=== PATIENT | female | born 1990 | race Caucasian/White ===

== ENCOUNTER 2023-04-27 10:17 | Inpatient (IN) ==
[2023-04-27] MEDS ORDERED: OXYTOCIN 30 UNITS/500 ML BAG IV PRN (10:48)
[2023-04-27] MEDS ORDERED: LIDOCAINE 1% LOCAL 20 ML VIAL INFIL PRN (10:48)
[2023-04-27] MEDS: LACTATED RINGER'S 1,000 ML IV PRN (11:10)
[2023-04-27] MEDS ORDERED: DINOPROSTONE 10 MG INSERT PV ONE (11:41)
--- NOTE | 2023-04-27 11:41 | History & Physical Report ---
Date of Service April 27, 2023 Assessment & Plan Admission and Anticipated Discharge Date Admission Date: April 27, 2023 History of Present Illness Chief Complaint: induction of labor Primary Care Provider: Sterling Pascal MD 32 F P0000 at 38 weeks presents for IOL for IUGR Allergies Allergy/AdvReac Type Severity Reaction Status Date / Time No Known Allergies Allergy Unverified 04/17/23 19:39 Home Medications Medication Instructions Recorded Confirmed Type cyanocobalamin (B12)-cobamamide 1 rick sublingual 04/17/23 History 5,000 mcg-100 mcg sublingual lozenge (B12) docusate sodium 50 mg capsule 50 mg PO DAILY 04/17/23 04/17/23 History iron,carbonyl 65 mg-vitamin C 125 tab PO 04/17/23 History mg tablet,delayed release (Vitron-C) vit no.95-ferrous 1 tab PO DAILY 04/17/23 04/17/23 History fumarate 28 mg-folic acid 800 mcg tablet () Patient History Medical History Hx of right bundle branch block Thrombocytopenia affecting Surgical History H/O LEEP [place] teeth removed Social History Smoking Status: Never smoker Second Hand Exposure: No; Hx Alcohol Use: No Hx Substance Use: No Preferred Language: Georgian Communication Ability: Effective 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 Beliefs That Will Affect Care: None marital status: Current Living Situation: Spouse Current Living Situation Comment: with Feels Safe at Home: Yes Assistive Devices: None OB History primigravida IUGR 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 Review of Systems All systems reviewed & are unremarkable except as noted in HPI & below Physical Exam Constitutional: WD/WN, vitals as above Eyes: PERRL, conjunctivae normal, anicteric sclerae Respiratory: normal respiratory effort, lungs clear to auscultation Cardiovascular: RRR, no murmur, no edema Rate/Rhythm: regular rate and regular rhythm Gastrointestinal (Abdomen): Inspection/Auscultation: abdomen normal to inspection Musculoskeletal: Extremities: extremities normal to inspection Skin: no rashes, warm and dry Neurologic: patellar DTR's 2+ bilat, sensation intact Psychiatric: A+Ox3, euthymic affect Genitourinary: no vaginal lesions, no adnexal mass Manual OB Exam: + cervical dilation fingertip, + cervical effacement 50% and + station high OB Exam Monitor Tracing: + external FHT monitor used, + external uterine monitor used, + category I and + normal FHT variability Cervix closed/thick/firm/posterior Will use Cervidil for ripening Results & Data Vital Signs (Past 12 Hours) Vital Signs Pulse BP 04/27/23 11:30 84 149/103 H 04/27/23 11:21 75 145/97 H 04/27/23 11:12 77 156/89 H 04/27/23 11:00 78 141/93 H 04/27/23 10:51 81 146/99 H 04/27/23 10:42 79 150/95 H Monitoring External Monitor Cat 1
[2023-04-27 11:54] LABS: Hematocrit (blood only) 36.5 % (37.0-47.0); Hemoglobin 12.9 g/dl (12.0-16.0); Mean Corpuscular Hemoglobin 31.9 pg (25.0-34.0); Mean Corpuscular Hgb Conc 35.3 g/dL (32.0-36.0); Mean Corpuscular Volume 90.3 fL (80.0-100.0); Mean Platelet Volume 12.9 fL (9.4-12.4); Platelet Count 87 K/uL (130-400); RDW Coefficient of Variation 12.7 % (11.5-14.5); RDW Standard Deviation 41.5 fL (36.4-46.3); Red Blood Count 4.04 M/uL (4.20-5.40); White Blood Count 7.88 K/ul (4.8-10.8)
[2023-04-27 12:05] LABS: Alanine Aminotransferase 18 U/L (7-52); Albumin Globulin Ratio 1.3 (0.9-2); Albumin Level 3.6 gm/dl (3.4-5.0); Alkaline Phosphatase 115 U/L (34-104); Anion Gap 8 (3-11); Aspartate Aminotransferase 17 U/L (13-39); BUN Creatinine Ratio 16.4 (10-20); Bilirubin Direct 0.1 mg/dl (0-0.2); Bilirubin,Total 0.3 mg/dl (0.2-1.0); Blood Urea Nitrogen 12 mg/dl (6-23); Calcium 9.5 mg/dl (8.6-10.3); Carbon Dioxide 21 mmol/L (21-32); Chloride 105 mmol/L (98-107); Est GFR (African American) 127.2 ml/min; Est GFR (Non-African American) 109.7 ml/min; Globulin 2.7 gm/dl (2.5-4.0); Glucose 71 mg/dl (70-99(Fasting)); Potassium 3.8 mmol/L (3.5-5.1); Sodium 134 mmol/L (136-145); Total Protein 6.3 gm/dl (6.0-8.3); Uric Acid 6.8 mg/dl (2.6-7.2)
--- NOTE | 2023-04-27 12:18 | Labor Progress Brief Note ---
Date of Service April 27, 2023 Assessment & Plan Admission and Anticipated Discharge Date Admission Date: April 27, 2023 Physical Exam Genitourinary: OB Exam Monitor Tracing: + external FHT monitor used, + external uterine monitor used, + category I and + normal FHT variability Cervidil 10 mg placed vaginally Results & Data Vital Signs (Past 12 Hours) Vital Signs Pulse BP 04/27/23 12:10 72 143/88 H 04/27/23 12:00 74 141/87 H 04/27/23 11:50 75 136/86 04/27/23 11:41 71 142/99 H 04/27/23 11:30 84 149/103 H 04/27/23 11:21 75 145/97 H 04/27/23 11:12 77 156/89 H 04/27/23 11:00 78 141/93 H 04/27/23 10:51 81 146/99 H 04/27/23 10:42 79 150/95 H
[2023-04-27] MEDS ORDERED: SODIUM CHLORIDE 0.9% 250 ML IV PRN (13:10)
[2023-04-27 13:21] LABS: Creatinine Urine Random 49.8 mg/dl; Protein Creatinine Ratio Urine 0.1 (0-0.2); Total Protein Urine Random 6.4 mg/dl (0-11.9)
[2023-04-28] MEDS ORDERED: BUTORPHANOL TARTRATE 1 MG/ML VIAL IV PRN (00:19)
--- NOTE | 2023-04-28 00:19 | Labor Progress Brief Note ---
Date of Service April 28, 2023 Assessment & Plan Admission and Anticipated Discharge Date Admission Date: April 27, 2023 Physical Exam Genitourinary: Manual OB Exam: + cervical dilation 1 cm, + cervical effacement 60% and + station -2 OB Exam Monitor Tracing: + external FHT monitor used, + external uterine monitor used, + category I and + normal FHT variability Cervidil pulled out. Will start Cytotec 50 mcg every 4 hrs. Results & Data Vital Signs (Past 12 Hours) Vital Signs Temp Pulse Resp BP 04/27/23 19:12 36.6 C 18 04/28/23 00:07 82 122/83 04/27/23 23:50 68 136/85 04/27/23 23:37 75 140/90 04/27/23 21:16 68 137/83 04/27/23 18:48 73 133/83 04/27/23 17:14 77 133/86 04/27/23 15:50 72 135/90 04/27/23 15:19 72 136/89 04/27/23 13:51 80 151/91 H 04/27/23 13:21 73 127/82 04/27/23 12:51 78 120/77
[2023-04-28] MEDS: miSOPROStoL 50 MCG TAB PO SCH ×2 (04:51→04:52)
[2023-04-28] MEDS: LACTATED RINGER'S 1,000 ML IV PRN ×2 (08:08→10:28)
[2023-04-28] MEDS ORDERED: OXYTOCIN 30 UNITS/500 ML BAG IV PRN ×2 (08:18→11:40)
--- NOTE | 2023-04-28 08:18 | Obstetrical Progress Note ---
Date of Service April 28, 2023 Assessment & Plan (1) Gestational hypertension: Plan: Plan to start oxytocin for augmentation when contractions spaced out and becomes category 1 tracing Epidural if patient requests pending platelet level CBC, chemistry every 12 hours No signs or symptoms, or severe range blood pressures to indicate preeclampsia with severe features. Protein creatinine ratio on admission 0.1 Anticipate spontaneous vaginal delivery (2) IUGR (intrauterine growth restriction) affecting care of mother: Plan: 8th percentile on recent growth scan (3) GDM (gestational diabetes mellitus), class A1: Plan: Continue to monitor at this time (4) Thrombocytopenia affecting : Plan: Last platelet level 87, morning platelet level pending Admission and Anticipated Discharge Date Admission Date: April 27, 2023 Subjective Patient getting more uncomfortable with contractions, feeling more pressure No PIH symptoms at this time Review of Systems Review of Systems: All systems reviewed & are unremarkable except as noted in HPI & below Physical Exam Constitutional: WD/WN, vitals as above Genitourinary: heart tracing: Baseline 1 301 35, moderate variability, positive accelerations, noted 1 late deceleration Tocometer: Contractions every 2 to 4 minutes Cervix: 3-4/80/-1, AROM performed with blood-tinged fluid, no cord felt, no complications Results & Data Vital Signs (Past 12 Hours) Vital Signs Temp Pulse Resp BP 04/28/23 04:49 18 04/28/23 04:49 37.1 C 18 04/28/23 04:53 73 141/94 H 04/28/23 02:53 67 145/78 H 04/28/23 00:09 18 04/28/23 00:09 37.0 C 18 04/28/23 00:07 82 122/83 04/27/23 23:50 68 136/85 04/27/23 23:37 75 140/90 04/27/23 21:16 68 137/83 Laboratory Results Laboratory Results WBC 7.88 K/ul (4.8-10.8) 04/27/23 11:25 RBC 4.04 M/uL (4.20-5.40) L 04/27/23 11:25 Hgb 12.9 g/dl (12.0-16.0) 04/27/23 11:25 Hct 36.5 % (37.0-47.0) L 04/27/23 11:25 MCV 90.3 fL (80.0-100.0) 04/27/23 11:25 MCH 31.9 pg (25.0-34.0) 04/27/23 11:25 MCHC 35.3 g/dL (32.0-36.0) 04/27/23 11:25 RDW Std Deviation 41.5 fL (36.4-46.3) 04/27/23 11:25 RDW Coeff of Celeste 12.7 % (11.5-14.5) 04/27/23 11:25 Plt Count 87 K/uL (130-400) L 04/27/23 11:25 MPV 12.9 fL (9.4-12.4) H 04/27/23 11:25 Sodium 134 mmol/L (136-145) L 04/27/23 11:25 Potassium 3.8 mmol/L (3.5-5.1) 04/27/23 11:25 Chloride 105 mmol/L (98-107) 04/27/23 11:25 Carbon Dioxide 21 mmol/L (21-32) 04/27/23 11:25 Anion Gap 8 (3-11) 04/27/23 11:25 BUN 12 mg/dl (6-23) 04/27/23 11:25 Creatinine 0.73 mg/dl (0.6-1.2) 04/27/23 11:25 Est Cr Clr Drug Dosing Not Reportable 04/27/23 11:25 Est GFR ( Amer) 127.2 ml/min 04/27/23 11:25 Est GFR (Non-Af Amer) 109.7 ml/min 04/27/23 11:25 BUN/Creatinine Ratio 16.4 (10-20) 04/27/23 11:25 Glucose 71 mg/dl (70-99(Fasting)) 04/27/23 11:25 POC Glucose 73 mg/dl (70-99) 04/27/23 11:29 Uric Acid 6.8 mg/dl (2.6-7.2) 04/27/23 11:25 Calcium 9.5 mg/dl (8.6-10.3) 04/27/23 11:25 Total Bilirubin 0.3 mg/dl (0.2-1.0) 04/27/23 11:25 Direct Bilirubin 0.1 mg/dl (0-0.2) 04/27/23 11:25 AST 17 U/L (13-39) 04/27/23 11:25 ALT 18 U/L (7-52) 04/27/23 11:25 Alkaline Phosphatase 115 U/L (34-104) H 04/27/23 11:25 Lactate Dehydrogenase 145 U/L (86-244) 04/27/23 11:25 Total Protein 6.3 gm/dl (6.0-8.3) 04/27/23 11:25 Albumin 3.6 gm/dl (3.4-5.0) 04/27/23 11:25 Globulin 2.7 gm/dl (2.5-4.0) 04/27/23 11:25 Albumin/Globulin Ratio 1.3 (0.9-2) 04/27/23 11:25 Ur Random Creatinine 49.8 mg/dl 04/27/23 Unknown U Random Total Protein 6.4 mg/dl (0-11.9) 04/27/23 Unknown Protein/Creatinin Ratio 0.1 (0-0.2) 04/27/23 Unknown SARS-CoV-2, RNA, NAAT NEGATIVE (NEGATIVE) 04/27/23 Unknown Blood Type A Positive 04/27/23 11:25 Antibody Screen NEGATIVE 04/27/23 11:25 Crossmatch See Detail 04/27/23 11:25
[2023-04-28] MEDS ORDERED: ePHEDrine sulfate 50 MG/ML AMP ONE (08:19)
[2023-04-28] MEDS ORDERED: SODIUM CHLORIDE 0.9% PF INJ 10 ML VIAL ONE (08:20)
[2023-04-28] MEDS ORDERED: fentaNYL citrate PF 100 MCG/2 ML VIAL ONE (08:20)
[2023-04-28] MEDS ORDERED: fentaNYL 2MCG/ML ROPIVACAINE 1.25MG/ML 100 ML BAG EPI ONE (08:21)
[2023-04-28] MEDS ORDERED: LIDOCAINE 2%/EPINEPHRINE 1:200,000 20 ML PF ONE (08:21)
[2023-04-28] MEDS ORDERED: BUPIVACAINE 0.25% PF 30 ML VIAL ONE (08:21)
[2023-04-28 08:42] LABS: Hematocrit (blood only) 36.2 % (37.0-47.0); Hemoglobin 12.7 g/dl (12.0-16.0); Mean Corpuscular Hemoglobin 32.5 pg (25.0-34.0); Mean Corpuscular Hgb Conc 35.1 g/dL (32.0-36.0); Mean Corpuscular Volume 92.6 fL (80.0-100.0); Mean Platelet Volume 12.9 fL (9.4-12.4); Platelet Count 87 K/uL (130-400); RDW Standard Deviation 43.6 fL (36.4-46.3); Red Blood Count 3.91 M/uL (4.20-5.40); White Blood Count 8.88 K/ul (4.8-10.8)
[2023-04-28 08:52] LABS: Albumin Globulin Ratio 1.5 (0.9-2); Albumin Level 3.5 gm/dl (3.4-5.0); BUN Creatinine Ratio 10.3 (10-20); Bilirubin,Total 0.4 mg/dl (0.2-1.0); Calcium 8.9 mg/dl (8.6-10.3); Creatinine Clr Calc Pharmacy 78.2 ml/min; Est GFR (African American) 102.9 ml/min; Est GFR (Non-African American) 88.8 ml/min; Globulin 2.4 gm/dl (2.5-4.0); Potassium 4.2 mmol/L (3.5-5.1); Total Protein 5.9 gm/dl (6.0-8.3)
[2023-04-28] MEDS ORDERED: ePHEDrine sulfate 50 MG/ML AMP IV PRN (09:28)
[2023-04-28] MEDS ORDERED: fentaNYL citrate PF 100 MCG/2 ML VIAL EPI STA (09:28)
[2023-04-28] MEDS ORDERED: NALOXONE HCL 0.4 MG/1 ML VIAL/CARP IV PRN (09:28)
[2023-04-28] MEDS ORDERED: fentaNYL citrate PF 100 MCG/2 ML VIAL EPI PRN (09:28)
[2023-04-28] MEDS ORDERED: BUPIVACAINE 0.25% PF 30 ML VIAL EPI STA (09:28)
[2023-04-28] MEDS ORDERED: SODIUM CHLORIDE 0.9% PF INJ 10 ML VIAL EPI STA (09:28)
[2023-04-28] MEDS ORDERED: LIDOCAINE 2% MPF LOCAL 5 ML VIAL EPI PRN (09:28)
[2023-04-28] MEDS ORDERED: diphenhydrAMINE 50 MG/ML VIAL IV PRN (09:28)
[2023-04-28] MEDS ORDERED: BUPIVACAINE 0.25% PF 30 ML VIAL EPI PRN (09:28)
[2023-04-28] MEDS ORDERED: NALBUPHINE HCL INJ 10 MG/ML AMP IV PRN (09:28)
[2023-04-28] MEDS ORDERED: NALOXONE HCL 1 MG in SODIUM CHLORIDE 0.9% 1000ML 1,000 ML IV PRN (09:28)
[2023-04-28] MEDS ORDERED: SODIUM CHLORIDE 0.9% PF INJ 10 ML VIAL EPI PRN (09:28)
[2023-04-28] MEDS ORDERED: ONDANSETRON INJ 2 MG/ML 2 ML VIAL IV PRN (09:28)
[2023-04-28] MEDS ORDERED: fentaNYL 2MCG/ML ROPIVACAINE 1.25MG/ML 100 ML BAG EPI PRN (09:28)
[2023-04-28] MEDS ORDERED: ROPIVACAINE 0.5% PF 5 MG/ML 20 ML VIAL EPI PRN (09:28)
[2023-04-28] MEDS ORDERED: LIDOCAINE 2%/EPINEPHRINE 1:200,000 20 ML PF EPI STA (09:28)
--- NOTE | 2023-04-28 09:29 | Anesthesiology Consultation ---
Date of Service April 28, 2023 Assessment & Plan Chart Review Chart Review: Patient NOT seen in Pre Admission Testing and Acceptable Risk for Labor Epidural Consults Requested none ASA ASA2 Proposed Anesthesia Anesthesia Type: Labor Epidural Risk / Benefits Reviewed With: PT / POA / Parent / Guardian, Accepts Plan and Informed Consent Obtained History Height/Weight Height: 5 ft Weight: 63.957 kg Allergies Allergy/AdvReac Type Severity Reaction Status Date / Time No Known Allergies Allergy Unverified 04/17/23 19:39 Medications Home Medications Medication Instructions Recorded Confirmed Last Taken cyanocobalamin (B12)-cobamamide 1 rick sublingual 04/17/23 04/16/23 5,000 mcg-100 mcg sublingual lozenge (B12) docusate sodium 50 mg capsule 50 mg PO DAILY 04/17/23 04/27/23 04/26/23 20:00 iron,carbonyl 65 mg-vitamin C 125 1 tab PO DAILY 04/17/23 04/27/23 04/26/23 20:00 mg tablet,delayed release (Vitron-C) vit no.95-ferrous 1 tab PO DAILY 04/17/23 04/27/23 04/26/23 20:00 fumarate 28 mg-folic acid 800 mcg tablet () Active Medications Generic Name Dose Route Start Last Admin Trade Name Freq PRN Reason Stop Dose Admin Lactated Ringer's 1,000 mls @ 125 mls/hr 04/27/23 10:48 04/28/23 08:55 Lr IV 04/29/23 10:47 999 mls/hr .Q8H PRN Infusion L&D Protocol Protocol Past Medical History Medical History (Updated 04/27/23 @ 13:57 by Sarah Rodriguez MD, PhD) Hx of right bundle branch block IUGR (intrauterine growth restriction) affecting care of mother Thrombocytopenia affecting Exercise / Class Metabolic Activity II 4-5 Yardwork/Stairs/Walk up hill Past Surgical History Surgical History H/O LEEP [place] teeth removed Past Anesthesia History No Hx of Anesthesia Complications and No Family Hx of Anesthesia Complications History of PONV No Hx of PONV and No Hx of Motion Sickness Social History Smoking Status: Former smoker Hx Alcohol Use: No Hx Substance Use: No Physical Exam Vital Signs Last Vital Signs Temp 36.4 C L 04/28/23 08:53 Pulse 93 H 04/28/23 09:27 Resp 22 04/28/23 08:53 BP 136/64 04/28/23 09:25 Pulse Ox 91 04/28/23 09:27 O2 Del Method Room Air 04/27/23 11:48 ENMT Mouth: no dentition abnormality Thyromental Distance: > or= 3.5 Finger Breadths Mallampati Class: II Neck normal visual inspection Respiratory normal respiratory effort Auscultation: lungs clear to auscultation bilaterally Cardiovascular Rate/Rhythm: regular rate and regular rhythm Psychiatric Orientation: alert Testing Laboratory Results 04/28/23 08:21 04/28/23 08:21 Blood Type A Positive 04/27/23 11:25 Antibody Screen NEGATIVE 04/27/23 11:25
--- NOTE | 2023-04-28 10:37 | Obstetrical Progress Note ---
Date of Service April 28, 2023 Assessment & Plan (1) Gestational hypertension: Plan: Consents signed for stat C section Currently FHT 110 with early decls Anticipate spontaneous vaginal delivery, or C section if indicated (2) IUGR (intrauterine growth restriction) affecting care of mother: Plan: 8th percentile on recent growth scan (3) GDM (gestational diabetes mellitus), class A1: Plan: Continue to monitor at this time (4) Thrombocytopenia affecting : Plan: Last platelet level 87, morning platelet level pending Admission and Anticipated Discharge Date Admission Date: April 27, 2023 Subjective Patient having pressure, was pushing with nursing Noted FHT 60-80 with decel 7 min Physical Exam Constitutional: WD/WN, vitals as above Genitourinary: FHT: baseline 130, mod variability, +accels, 7 min decel that responded to maternal resuscitation [place]: q2-3 min Cx: 10/100/+1 Results & Data Vital Signs (Past 12 Hours) Vital Signs Temp Pulse Resp BP Pulse Ox 04/28/23 10:31 86 98 04/28/23 10:26 84 100 04/28/23 10:21 76 98 04/28/23 10:20 88 91 04/28/23 10:16 84 100 04/28/23 10:12 88 140/89 04/28/23 10:11 95 H 98 04/28/23 10:09 86 92 04/28/23 10:06 69 99 04/28/23 10:01 100 04/28/23 10:01 69 04/28/23 10:02 69 163/79 H 04/28/23 10:01 75 93 04/28/23 09:56 64 100 04/28/23 09:51 71 99 04/28/23 09:46 72 100 04/28/23 09:43 72 94 04/28/23 09:41 70 98 04/28/23 09:39 68 146/80 H 04/28/23 09:36 75 100 04/28/23 09:31 75 100 04/28/23 09:30 86 153/81 H 04/28/23 09:28 77 110/72 04/28/23 09:27 93 H 91 04/28/23 09:26 92 H 97 04/28/23 09:25 76 136/64 04/28/23 09:24 78 135/58 L 04/28/23 09:22 71 149/66 H 04/28/23 09:21 82 97 04/28/23 09:20 73 158/80 H 04/28/23 09:16 85 96 04/28/23 09:14 85 93 04/28/23 09:11 77 96 04/28/23 09:06 98 04/28/23 09:06 75 04/28/23 09:06 74 93 04/28/23 09:01 77 98 04/28/23 08:56 81 100 04/28/23 08:53 22 04/28/23 08:53 36.4 C L 22 04/28/23 08:51 88 97 04/28/23 08:17 78 156/79 H 04/28/23 04:49 18 04/28/23 04:49 37.1 C 18 04/28/23 04:53 73 141/94 H 04/28/23 02:53 67 145/78 H 04/28/23 00:09 18 04/28/23 00:09 37.0 C 18 04/28/23 00:07 82 122/83 04/27/23 23:50 68 136/85 04/27/23 23:37 75 140/90
[2023-04-28] MEDS ORDERED: DIPHTHERIA/TETANUS/PERTUSSIS Vaccine (Tdap, Age 7+yrs) 0.5mL SYR/VL IM ONE (11:40)
[2023-04-28] MEDS ORDERED: BENZOCAINE 20% AER SPR 82.5 GM CAN EXT PRN (11:40)
[2023-04-28] MEDS ORDERED: HYDROCORTISONE ACETATE 25 MG SUPP PR PRN (11:40)
[2023-04-28] MEDS ORDERED: bisacodyL 10 MG SUPP PR PRN (11:40)
[2023-04-28] MEDS ORDERED: ACETAMINOPHEN 325 MG TAB PO PRN (11:40)
--- NOTE | 2023-04-28 11:43 | Delivery Summary ---
Vaginal Delivery Summary Date of Service April 28, 2023 Vaginal Delivery Summary Vacuum assisted vaginal delivery Indication: Cat II tracing, thick meconium Consent: The benefits, risks and alternatives were discussed with the patient as well as the process of vacuum delivery. Consent included infection, bleeding, maternal laceration, as well as cephalohematoma, subgaleal hematoma and shoulder dystocia patient desires to proceed with a vacuum delivery and understood the small risk and if more than 3 pop offs will have to proceed with emergency delivery. All questions were answered. Procedure: Patient's bladder was emptied with a straight catheter. Vaginal exam showed CHAU position. A kiwi vacuum device was applied over the sagittal suture and about 3 cm in from the posterior fontanelle toward the face. Vacuum pressure was created with the hand pump and established at 500 mm Hg. The edge of the vacuum cup was carefully examined and no maternal tissue was entrapped under the cuff. With the left hand applying counter pressure on the vacuum cup to prevent pop- off, the right hand applied gentle horizontal traction along the pelvic access. This occurred in coordination with uterine contractions and maternal pushing. Progressive descent was noted with each pull (total of three pulls). The handle of the vacuum was gradually elevated when the perineum began to bulge. The cup did not pop off off during the entire procedure. The cup was removed after the head delivered. Anterior shoulders were delivered by posterior shoulders and the remainder of the infant's body. Mouth and nose were bulb suction. A male was delivered, weight pending, with APGARS of 8 at 1 minute and 9 at 5 minutes. The umbilical cord was clamped times two and cut. The was handed off to the awaiting nursing staff. Cord blood gases were obtained. The placenta delivered intact with three vessel cord. Placenta was sent to pathology. Thirty units of Pitocin were added to the IV fluid and allowed to run freely. Uterine massage was performed until uterus was deemed firm. Upon inspection of the perineum, vagina and cervix were intact. Second degree laceration was noted which was repaired with 3-0 vicryl in the usual fashion. Upon re-inspection the patient was hemostatic. Uterus again massaged and found to be firm. Needle and sponge counts were correct. Patient was stable and allowed to recover in L&D room. was stable and remained in room with mother in the Family Care Unit.
[2023-04-28 13:14] LABS: Platelet Count 82 K/uL (130-400)
--- NOTE | 2023-04-28 14:33 | Anesthesia Procedure Note ---
Date of Service April 28, 2023 Anesthesia Post Epidural Note Vital Signs Vital Signs: Temp Pulse Resp BP Pulse Ox O2 Del Method 36.4 C L 84 20 139/76 95 Room Air 04/28/23 08:53 04/28/23 13:46 04/28/23 12:59 04/28/23 13:44 04/28/23 13:46 04/27/23 11:48 Notes Mental Status: alert / awake / arousable Nausea / Vomiting: adequately controlled Pain: adequately controlled Airway Patency, RR, SpO2: stable & adequate BP & HR: stable & adequate Hydration State: stable & adequate Neuraxial Anesthesia: was administered and sensory block is resolving Anesthetic Complications: no major complications apparent and Pt Satisfied with anesthetic care Epidural: Removed without complications and With tip intact
[2023-04-28] MEDS: IBUPROFEN 600 MG TAB PO PRN (19:52)
[2023-04-28] MEDS: DOCUSATE SODIUM 100 MG CAP PO SCH (19:52)
[2023-04-28 20:38] LABS: Hematocrit (blood only) 32.5 % (37.0-47.0); Hemoglobin 11.6 g/dl (12.0-16.0); Mean Corpuscular Hemoglobin 32.1 pg (25.0-34.0); Mean Corpuscular Hgb Conc 35.7 g/dL (32.0-36.0); Mean Platelet Volume 12.4 fL (9.4-12.4); Platelet Count 69 K/uL (130-400); RDW Coefficient of Variation 12.8 % (11.5-14.5); RDW Standard Deviation 42.1 fL (36.4-46.3); Red Blood Count 3.61 M/uL (4.20-5.40); White Blood Count 10.85 K/ul (4.8-10.8)
[2023-04-28 20:50] LABS: Albumin Globulin Ratio 1.3 (0.9-2); Albumin Level 3.2 gm/dl (3.4-5.0); BUN Creatinine Ratio 11.3 (10-20); Bilirubin,Total 0.3 mg/dl (0.2-1.0); Calcium 8.8 mg/dl (8.6-10.3); Creatinine Clr Calc Pharmacy 85.1 ml/min; Est GFR (African American) 113.9 ml/min; Est GFR (Non-African American) 98.2 ml/min; Globulin 2.4 gm/dl (2.5-4.0); Potassium 3.6 mmol/L (3.5-5.1); Total Protein 5.6 gm/dl (6.0-8.3)
[2023-04-29 06:54] LABS: Hemoglobin 12.1 g/dl (12.0-16.0); Mean Corpuscular Hgb Conc 35.6 g/dL (32.0-36.0); Mean Corpuscular Volume 89.9 fL (80.0-100.0); Mean Platelet Volume 12.6 fL (9.4-12.4); Platelet Count 78 K/uL (130-400); RDW Coefficient of Variation 12.9 % (11.5-14.5); RDW Standard Deviation 41.7 fL (36.4-46.3); Red Blood Count 3.78 M/uL (4.20-5.40); White Blood Count 10.98 K/ul (4.8-10.8)
[2023-04-29 07:10] LABS: Albumin Globulin Ratio 1.3 (0.9-2); Albumin Level 3.3 gm/dl (3.4-5.0); Bilirubin,Total 0.2 mg/dl (0.2-1.0); Calcium 9.1 mg/dl (8.6-10.3); Est GFR (African American) 110.5 ml/min; Est GFR (Non-African American) 95.4 ml/min; Globulin 2.6 gm/dl (2.5-4.0); Potassium 3.8 mmol/L (3.5-5.1); Total Protein 5.9 gm/dl (6.0-8.3)
[2023-04-29] MEDS: DOCUSATE SODIUM 100 MG CAP PO SCH ×2 (09:07→20:11)
[2023-04-29] MEDS: IBUPROFEN 600 MG TAB PO PRN ×2 (09:07→20:11)
[2023-04-29] MEDS: PRENATAL VITAMIN 1 TAB PO SCH (09:07)
--- NOTE | 2023-04-29 09:18 | Obstetrical Progress Note ---
Date of Service April 29, 2023 Subjective Ambulation: ambulating normally Voiding: no voiding problems Passing Gas:: Yes Diet Tolerance:: regular diet Lochia:: Small Feeding Type:: breast feeding Current Pain Level(1-10): 0 doing well Physical Exam Constitutional WD/WN, vitals as above Gastrointestinal (Abdomen) Inspection/Auscultation: abdomen normal to inspection fundus firm below U abdomen soft and non-tender Musculoskeletal Extremities: extremities normal to inspection Skin no rashes, warm and dry Neurologic patellar DTR's 2+ bilat, sensation intact Psychiatric A+Ox3, euthymic affect Results & Data Vital Signs (Past 12 Hours) Vital Signs Temp Pulse Resp BP Pulse Ox O2 Del Method 04/29/23 04:30 36.8 C 73 18 136/93 97 Room Air 04/28/23 23:30 36.8 C 72 18 142/86 H 97 Room Air Laboratory Results Laboratory Results - last 72 hr 04/27/23 04/27/23 04/27/23 11:25 11:25 11:25 WBC 7.88 RBC 4.04 L Hgb 12.9 Hct 36.5 L MCV 90.3 MCH 31.9 MCHC 35.3 RDW Std Deviation 41.5 RDW Coeff of Celeste 12.7 Plt Count 87 L MPV 12.9 H Sodium 134 L Potassium 3.8 Chloride 105 Carbon Dioxide 21 Anion Gap 8 BUN 12 Creatinine 0.73 Est Cr Clr Drug Dosing Not Reportable Est GFR ( Amer) 127.2 Est GFR (Non-Af Amer) 109.7 BUN/Creatinine Ratio 16.4 Glucose 71 POC Glucose Uric Acid 6.8 Calcium 9.5 Total Bilirubin 0.3 Direct Bilirubin 0.1 AST 17 ALT 18 Alkaline Phosphatase 115 H Lactate Dehydrogenase Total Protein 6.3 Albumin 3.6 Globulin 2.7 Albumin/Globulin Ratio 1.3 Ur Random Creatinine U Random Total Protein Protein/Creatinin Ratio SARS-CoV-2, RNA, NAAT Blood Type A Positive Blood Type Recheck Antibody Screen NEGATIVE Crossmatch See Detail 04/27/23 04/27/23 04/27/23 11:25 11:29 Unknown WBC RBC Hgb Hct MCV MCH MCHC RDW Std Deviation RDW Coeff of Celeste Plt Count MPV Sodium Potassium Chloride Carbon Dioxide Anion Gap BUN Creatinine Est Cr Clr Drug Dosing Est GFR ( Amer) Est GFR (Non-Af Amer) BUN/Creatinine Ratio Glucose POC Glucose 73 Uric Acid Calcium Total Bilirubin Direct Bilirubin AST ALT Alkaline Phosphatase Lactate Dehydrogenase 145 Total Protein Albumin Globulin Albumin/Globulin Ratio Ur Random Creatinine U Random Total Protein Protein/Creatinin Ratio SARS-CoV-2, RNA, NAAT NEGATIVE Blood Type Blood Type Recheck Antibody Screen Crossmatch 04/27/23 04/28/23 04/28/23 Unknown 08:21 08:21 WBC 8.88 RBC 3.91 L Hgb 12.7 Hct 36.2 L MCV 92.6 MCH 32.5 MCHC 35.1 RDW Std Deviation 43.6 RDW Coeff of Celeste 13.0 Plt Count 87 L MPV 12.9 H Sodium 135 L Potassium 4.2 Chloride 104 Carbon Dioxide 23 Anion Gap 8 BUN 9 Creatinine 0.87 Est Cr Clr Drug Dosing 78.2 Est GFR ( Amer) 102.9 Est GFR (Non-Af Amer) 88.8 BUN/Creatinine Ratio 10.3 Glucose 76 POC Glucose Uric Acid Calcium 8.9 Total Bilirubin 0.4 Direct Bilirubin AST 17 ALT 18 Alkaline Phosphatase 131 H Lactate Dehydrogenase Total Protein 5.9 L Albumin 3.5 Globulin 2.4 L Albumin/Globulin Ratio 1.5 Ur Random Creatinine 49.8 U Random Total Protein 6.4 Protein/Creatinin Ratio 0.1 SARS-CoV-2, RNA, NAAT Blood Type Blood Type Recheck Antibody Screen Crossmatch 04/28/23 04/28/23 04/28/23 08:24 12:26 20:23 WBC RBC Hgb Hct MCV MCH MCHC RDW Std Deviation RDW Coeff of Celeste Plt Count 82 L MPV Sodium 138 Potassium 3.6 Chloride 107 Carbon Dioxide 22 Anion Gap 9 BUN 9 Creatinine 0.80 Est Cr Clr Drug Dosing 85.1 Est GFR ( Amer) 113.9 Est GFR (Non-Af Amer) 98.2 BUN/Creatinine Ratio 11.3 Glucose 106 H POC Glucose Uric Acid Calcium 8.8 Total Bilirubin 0.3 Direct Bilirubin AST 20 ALT 17 Alkaline Phosphatase 114 H Lactate Dehydrogenase Total Protein 5.6 L Albumin 3.2 L Globulin 2.4 L Albumin/Globulin Ratio 1.3 Ur Random Creatinine U Random Total Protein Protein/Creatinin Ratio SARS-CoV-2, RNA, NAAT Blood Type Blood Type Recheck A Positive Antibody Screen Crossmatch 04/28/23 04/29/23 04/29/23 20:23 06:34 06:34 WBC 10.85 H 10.98 H RBC 3.61 L 3.78 L Hgb 11.6 L 12.1 Hct 32.5 L 34.0 L MCV 90.0 89.9 MCH 32.1 32.0 MCHC 35.7 35.6 RDW Std Deviation 42.1 41.7 RDW Coeff of Celeste 12.8 12.9 Plt Count 69 L 78 L MPV 12.4 12.6 H Sodium 138 Potassium 3.8 Chloride 107 Carbon Dioxide 22 Anion Gap 9 BUN 9 Creatinine 0.82 Est Cr Clr Drug Dosing 83.0 Est GFR ( Amer) 110.5 Est GFR (Non-Af Amer) 95.4 BUN/Creatinine Ratio 11.0 Glucose 92 POC Glucose Uric Acid Calcium 9.1 Total Bilirubin 0.2 Direct Bilirubin AST 21 ALT 17 Alkaline Phosphatase 120 H Lactate Dehydrogenase Total Protein 5.9 L Albumin 3.3 L Globulin 2.6 Albumin/Globulin Ratio 1.3 Ur Random Creatinine U Random Total Protein Protein/Creatinin Ratio SARS-CoV-2, RNA, NAAT Blood Type Blood Type Recheck Antibody Screen Crossmatch
[2023-04-29] MEDS ORDERED: bisacodyL 5 MG TABEC PO SCH (20:00)
[2023-04-29 20:25] LABS: Hematocrit (blood only) 34.3 % (37.0-47.0); Mean Corpuscular Hemoglobin 32.2 pg (25.0-34.0); Mean Platelet Volume 12.5 fL (9.4-12.4); Platelet Count 94 K/uL (130-400); Red Blood Count 3.73 M/uL (4.20-5.40); White Blood Count 11.37 K/ul (4.8-10.8)
[2023-04-29 20:42] LABS: Albumin Globulin Ratio 1.2 (0.9-2); Albumin Level 3.4 gm/dl (3.4-5.0); BUN Creatinine Ratio 12.9 (10-20); Bilirubin,Total 0.2 mg/dl (0.2-1.0); Calcium 8.7 mg/dl (8.6-10.3); Creatinine Clr Calc Pharmacy 73.2 ml/min; Est GFR (African American) 94.9 ml/min; Est GFR (Non-African American) 81.9 ml/min; Globulin 2.8 gm/dl (2.5-4.0); Total Protein 6.2 gm/dl (6.0-8.3)
[2023-04-29 22:53] LABS: Potassium 3.7 mmol/L (3.5-5.1)
[2023-04-30 07:27] LABS: Hematocrit (blood only) 32.8 % (37.0-47.0); Hemoglobin 11.4 g/dl (12.0-16.0)
--- NOTE | 2023-04-30 08:32 | Obstetrical Progress Note ---
Date of Service April 30, 2023 Assessment & Plan (1) Normal course: Doing well, will discharge home today to follow-up in clinic in 3 and 6 weeks Discharge instructions given to patient (2) Gestational hypertension: (3) IUGR (intrauterine growth restriction) affecting care of mother: (4) GDM (gestational diabetes mellitus), class A1: (5) Thrombocytopenia affecting : Subjective Ambulation: ambulating normally Voiding: no voiding problems Passing Gas:: Yes Diet Tolerance:: regular diet Lochia:: Small Feeding Type:: breast feeding Current Pain Level(1-10): 0 Doing well, no issues Wants to go home today Physical Exam Constitutional WD/WN, vitals as above Respiratory normal respiratory effort, lungs clear to auscultation Cardiovascular RRR, no murmur, no edema Gastrointestinal (Abdomen) normal bowel sounds, soft, nontender, no hepatosplenomegaly Results & Data Vital Signs (Past 12 Hours) Vital Signs Temp Pulse Resp BP Pulse Ox O2 Del Method 04/29/23 23:39 36.4 C L 69 18 127/86 99 Room Air Laboratory Results Laboratory Results WBC 11.37 K/ul (4.8-10.8) H 04/29/23 20:08 RBC 3.73 M/uL (4.20-5.40) L 04/29/23 20:08 Hgb 11.4 g/dl (12.0-16.0) L 04/30/23 07:00 Hct 32.8 % (37.0-47.0) L 04/30/23 07:00 MCV 92.0 fL (80.0-100.0) 04/29/23 20:08 MCH 32.2 pg (25.0-34.0) 04/29/23 20:08 MCHC 35.0 g/dL (32.0-36.0) 04/29/23 20:08 RDW Std Deviation 43.0 fL (36.4-46.3) 04/29/23 20:08 RDW Coeff of Celeste 13.0 % (11.5-14.5) 04/29/23 20:08 Plt Count 94 K/uL (130-400) L 04/29/23 20:08 MPV 12.5 fL (9.4-12.4) H 04/29/23 20:08 Sodium 137 mmol/L (136-145) 04/29/23 20:08 Potassium 3.7 mmol/L (3.5-5.1) 04/29/23 20:08 Chloride 106 mmol/L (98-107) 04/29/23 20:08 Carbon Dioxide 22 mmol/L (21-32) 04/29/23 20:08 Anion Gap 9 (3-11) 04/29/23 20:08 BUN 12 mg/dl (6-23) 04/29/23 20:08 Creatinine 0.93 mg/dl (0.6-1.2) 04/29/23 20:08 Est Cr Clr Drug Dosing 73.2 ml/min 04/29/23 20:08 Est GFR ( Amer) 94.9 ml/min 04/29/23 20:08 Est GFR (Non-Af Amer) 81.9 ml/min 04/29/23 20:08 BUN/Creatinine Ratio 12.9 (10-20) 04/29/23 20:08 Glucose 140 mg/dl (70-99(Fasting)) H 04/29/23 20:08 POC Glucose 73 mg/dl (70-99) 04/27/23 11:29 Uric Acid 6.8 mg/dl (2.6-7.2) 04/27/23 11:25 Calcium 8.7 mg/dl (8.6-10.3) 04/29/23 20:08 Total Bilirubin 0.2 mg/dl (0.2-1.0) 04/29/23 20:08 Direct Bilirubin 0.1 mg/dl (0-0.2) 04/27/23 11:25 AST 19 U/L (13-39) 04/29/23 20:08 ALT 17 U/L (7-52) 04/29/23 20:08 Alkaline Phosphatase 118 U/L (34-104) H 04/29/23 20:08 Lactate Dehydrogenase 145 U/L (86-244) 04/27/23 11:25 Total Protein 6.2 gm/dl (6.0-8.3) 04/29/23 20:08 Albumin 3.4 gm/dl (3.4-5.0) 04/29/23 20:08 Globulin 2.8 gm/dl (2.5-4.0) 04/29/23 20:08 Albumin/Globulin Ratio 1.2 (0.9-2) 04/29/23 20:08 Ur Random Creatinine 49.8 mg/dl 04/27/23 Unknown U Random Total Protein 6.4 mg/dl (0-11.9) 04/27/23 Unknown Protein/Creatinin Ratio 0.1 (0-0.2) 04/27/23 Unknown SARS-CoV-2, RNA, NAAT NEGATIVE (NEGATIVE) 04/27/23 Unknown Blood Type A Positive 04/27/23 11:25 Blood Type Recheck A Positive 04/28/23 08:24 Antibody Screen NEGATIVE 04/27/23 11:25 Crossmatch See Detail 04/27/23 11:25
[2023-04-30] MEDS: DOCUSATE SODIUM 100 MG CAP PO SCH (09:07)
[2023-04-30] MEDS: IBUPROFEN 600 MG TAB PO PRN (09:08)
[2023-04-30] MEDS: PRENATAL VITAMIN 1 TAB PO SCH (09:08)
== END 2023-04-30 15:20 | disposition home or self-care (01) | DRG 806 ==
LOC: 4S1 10:17 → 4E2 04-28 14:29